=== PATIENT | female | born 1975 | race Two or more races ===

== ENCOUNTER 2022-04-30 18:41 | Emergency (ER) | payer MEDICAID ==
[~2022-04-30] VITALS: Ht 160 cm; Wt 95.9 kg
[~2022-04-30 18:41] MED LIST: PRENCAP15
[2022-04-30] MEDS ORDERED: HYDROcodone-ACET 10/325MG TAB PO ONE (20:00)
[2022-04-30] MEDS ORDERED: AMOX500T3 PO (20:05)
[2022-04-30] MEDS ORDERED: HYDR-4798 PO (20:05)
[2022-04-30 20:17] VITALS: BP 143/91
== END 2022-04-30 20:25 | disposition home or self-care (01) ==
LOC: ER 18:42
DX: K05.10 Chronic gingivitis, plaque induced (principal); K08.89 Other specified disorders of teeth and supporting structures; Z79.899 Other long term (current) drug therapy